=== PATIENT | female | born 1985 | race Asian ===

== ENCOUNTER → 2024-09-16 | Outpatient (CLI) | payer MEDICAID, SELFPAY ==
--- NOTE | 2024-09-16 13:15 | XR_ITS ---
Examination: Breast ultrasound, unilateral, right complete Date and time of exam: September 16, 2024 1318 hours INDICATIONS: Personal history right breast cancer with lumpectomy 2004, outside mammogram July 07, 2024 12 mm mass upper outer right breast Technique: Real-time luo scale ultrasonographic imaging performed right breast including all 4 quadrants as well as nipple retroareolar and axillary region. Findings: 9:00 oval mass indistinct margins 10 x 8 x 10 mm 11:00 oval mass lobular margins 7 x 3 x 7 mm Retroareolar cyst 4 x 3 x 4 mm IMPRESSION: BI-RADS Category 4: Suspicious for malignancy Suspicious mass 9:00 position right breast, indistinct margins, 10 x 8 x 10 mm Biopsy of this nodule is needed to exclude breast carcinoma, this nodule is amenable to ultrasound-guided breast biopsy for diagnosis
--- NOTE | 2024-09-16 13:45 | XR_ITS ---
Examination: Diagnostic digital mammography, unilateral, right Computer aided detection 3-D breast Tomosynthesis, unilateral Date and time of exam: September 16, 2024 1341 hours INDICATIONS: Outside mammogram 12 mm mass outer right breast upper right breast Technique: Nonmagnified MLO, CC views of the right breast have been obtained, reconstructed from 3-D Tomosynthesis images. R2 computer aided detection program utilized for evaluation of suspicious masses and/or abnormal calcifications. 3-D Tomosynthesis images obtained. Findings: Scattered areas of fibroglandular density 9 mm nodule outer right breast with partially indistinct margins Please see the right breast sonogram report today indicating 9:00 nodule indistinct margins 10 x 10 mm Impression: BI-RADS category 4: Suspicious for malignancy Suspicious nodule outer right breast Please see the right breast sonogram report today indicating BI-RADS 4 suspicious nodule 9:00 position right breast requiring ultrasound-guided breast biopsy for diagnosis
== END | disposition home or self-care (01) ==
PROVIDERS: PCP Family Medicine; Referring Provider Family Medicine; Visit Provider Family Medicine
DX: R92.341 Mammographic extreme density, right breast (principal); N63.10 Unspecified lump in the right breast, unspecified quadrant; N63.15 Unspecified lump in the right breast, overlapping quadrants
CPT/HCPCS: 76641; 77061; 77065; G0279

== ENCOUNTER → 2024-11-09 | Outpatient (CLI) | payer MEDICAID, SELFPAY ==
--- NOTE | 2024-11-06 11:06 | EKG_ITS ---
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
[2024-11-06 13:20] LABS: Basophils # (Auto) 0.1 Thou/mm3 (0.0-0.2); Basophils % (Auto) 1 % (0-2.5); Eosinophils # (Auto) 0.7 Thou/mm3 (0.0-0.5); Eosinophils % (Auto) 5 % (0-10); Hematocrit 38.4 % (36.0-46.0); Hemoglobin 12.6 g/dL (12.0-16.0); Immature Granulocytes % (Auto) 0 % (0-0); Immature Granulocytes Auto 0.03 Thou/mm3 (0.00-0.00); Lymphocytes % (Auto) 22 % (10-50); Mean Corpuscular HGB Conc 32.8 g/dl (31.0-37.0); Mean Corpuscular Hemoglobin 28.3 pg (25.0-35.0); Mean Corpuscular Volume 86 fL (80-100); Monocytes # (Auto) 0.9 Thou/mm3 (0.0-0.8); Monocytes % (Auto) 6 % (0-12); Neutrophils # (Auto) 9.1 Thou/mm3 (1.8-7.7); Neutrophils % (Auto) 66 % (37-80); Nucleated Red Blood Cell % 0 /100 WBC (0); Platelet Count 378 Thou/mm3 (140-440); RDW Standard Deviation 42.3 fL (36.4-46.3); Red Blood Count 4.45 Miln/mm3 (4.00-5.20); White Blood Count 13.7 Thou/mm3 (3.6-11.0)
[2024-11-06 13:24] LABS: HCG,Qualitative Serum Negative
[2024-11-06 13:28] LABS: Partial Thromboplastin Time 29.2 Seconds (22.0-36.0); Prothrombin Time 10.5 Seconds (9.0-12.2)
--- NOTE | 2024-11-09 09:30 | XR_ITS ---
Examinations: Ultrasound-guided percutaneous breast biopsy, right breast 9:00 nodule Right breast sonography limited INDICATIONS: Right breast sonogram September 16, 2024 BI-RADS 4 suspicious nodule 9:00 position right breast. Exam date and time: November 09, 2024 0927 hours. Informed consent provided. Technique: A timeout was completed verifying correct patient, procedure, site, positioning, and special equipment if applicable Informed consent provided. The patient was placed in a supine position for the breast biopsy. Sonographic images of the breast were performed for localization of the suspicious nodule The patient's breast was prepped and draped in sterile fashion. Maximum sterile barrier technique, hand hygiene, ultrasound sterile technique 1% lidocaine was used to anesthetize the skin and breast adjacent to the suspicious nodule. Utilizing ultrasonographic guidance, 8 core biopsies were obtained of the suspicious nodule utilizing an 18-gauge BioPince needle. The specimens appears satisfactory. Estimated blood loss 3 cc. The patient tolerated the procedure well and there were no complications. Impression: Successful ultrasound-guided percutaneous breast biopsy, right breast 9:00 nodule.
== END | disposition home or self-care (01) ==
LOC: SDIM 08:53 → SIRX 09:20
PROVIDERS: Radiology Diagnostic Radiology; PCP Family Medicine; Referring Provider Family Medicine; Visit Provider Family Medicine
DX: D24.1 Benign neoplasm of right breast (principal); N60.21 Fibroadenosis of right breast; Z01.812 Encounter for preprocedural laboratory examination
CPT/HCPCS: 19083; 36415; 84703; 85025; 85610; 85730; 93005

== ENCOUNTER 2025-05-13 05:56 | Emergency (ER) | payer MEDICAID, SELFPAY ==
[2025-05-13 05:56] VITALS: BP 131/74; PULSE 106; RESP 18; TEMP 36.6; O2SAT 98
[2025-05-13 05:57] VITALS: BMI 22.8
--- NOTE | 2025-05-13 06:20 | XR_ITS ---
Examination: PA lateral chest 2 views TECHNIQUE: Upright PA lateral chest 2 views Date and time: May 13, 2025 0621 hours INDICATIONS: Cardiac palpitations today. FINDINGS: Normal heart size. Lungs are clear. The osseous structures are intact IMPRESSION: No active disease.
[2025-05-13 07:02] LABS: Collection Type, Urine Clean Catch
[2025-05-13 07:08] LABS: Basophils # (Auto) 0.1 Thou/mm3 (0.0-0.2); Basophils % (Auto) 1 % (0-2.5); Eosinophils # (Auto) 0.4 Thou/mm3 (0.0-0.5); Eosinophils % (Auto) 6 % (0-10); Hematocrit 38.0 % (36.0-46.0); Hemoglobin 12.5 g/dL (12.0-16.0); Immature Granulocytes Auto 0.01 Thou/mm3 (0.00-0.00); Lymphocytes # (Auto) 2.2 Thou/mm3 (1.0-4.8); Lymphocytes % (Auto) 29 % (10-50); Mean Corpuscular HGB Conc 32.9 g/dl (31.0-37.0); Mean Corpuscular Hemoglobin 28.3 pg (25.0-35.0); Mean Corpuscular Volume 86 fL (80-100); Monocytes # (Auto) 0.5 Thou/mm3 (0.0-0.8); Monocytes % (Auto) 7 % (0-12); Neutrophils # (Auto) 4.4 Thou/mm3 (1.8-7.7); Neutrophils % (Auto) 58 % (37-80); Nucleated Red Blood Cell # 0.00 Thou/mm3 (0.00-0.00); Nucleated Red Blood Cell % 0 /100 WBC (0); Platelet Count 358 Thou/mm3 (140-440); RDW Standard Deviation 39.8 fL (36.4-46.3); Red Blood Count 4.41 Miln/mm3 (4.00-5.20); White Blood Count 7.6 Thou/mm3 (3.6-11.0)
--- NOTE | 2025-05-13 07:15 | PD.EDRME ---
Rapid Medical Screening Exam RME Arrival date/time: 05/13/25 05:56 39-year-old female with history of valvuloplasty presents with concerns of palpitations Chief Complaint: Arrhythmia/Palpitations Vital signs: Vital Signs Temperature 97.8 F 05/13/25 05:56 Pulse Rate 106 H 05/13/25 05:56 Respiratory Rate 18 05/13/25 05:56 Blood Pressure 131/74 H 05/13/25 05:56 Pulse Oximetry (%) 98 05/13/25 05:56 Oxygen Delivery Method Room Air 05/13/25 05:56
[2025-05-13 07:19] LABS: HCG Qualitative,Urine Negative
[2025-05-13 07:23] LABS: Amphetamine/Methamp Scrn,U Negative (Negative); Barbiturate Screen,Urine Negative (Negative); Benzodiazepines Screen,Urine Negative (Negative); Benzoylecgonine Screen, Ur Negative (Negative); Fentanyl Screen,Urine Negative (Negative); Opiate Screen,Urine Negative (Negative); THC Screen,Urine Negative (Negative)
[2025-05-13 07:28] LABS: INR 1.0 (0.9-1.3); Partial Thromboplastin Time 29.9 Seconds (22.0-36.0); Prothrombin Time 11.1 Seconds (9.0-12.2)
[2025-05-13 07:29] LABS: Bilirubin,Urine Negative (Negative); Blood,Urine Negative (Negative); Clarity,Urine Turbid (Clear/Hazy); Color,Urine Yellow (Lt Yel-Yel); Culture Indicated,Urine Not Indicated; Glucose, Urine Negative (Negative); Hyaline Casts,Urine 1 /hpf (0-1); Ketones,Urine Negative (Negative); Leukocyte Esterase,Urine Positive (Negative); Nitrite,Urine Negative (Negative); PH,Urine 6.0 (5.0-7.0); Protein,Urine 1+ (Neg - Trace); RBC,Urine 5 /hpf (0-3); Specific Gravity,Urine 1.032 (1.001-1.035); Squamous Epithelial Cell,Urine 19 /hpf (0-5); Urobilinogen,Urine Negative mg/dL (0.0-1.0); WBC,Urine 9 /hpf (0-5)
[2025-05-13 07:31] LABS: Alanine Aminotransferase 16 U/L (10-49); Albumin, Serum 4.3 gm/dL (3.5-5.0); Albumin/Globulin Ratio 1.5 (1.2-2.2); Alkaline Phosphatase 82 U/L (46-116); Anion Gap 11 (7-16); Aspartate Amino Transferase 18 U/L (0-34); BUN/Creatinine Ratio 10 Ratio (12-20); Bilirubin,Total 1.2 mg/dL (0.3-1.2); Blood Urea Nitrogen 7 mg/dL (9-23); Calcium 9.7 mg/dL (8.3-10.6); Calcium (Corrected) 9.7 mg/dL (8.5-10.1); Carbon Dioxide 26.4 mMol/L (20.0-31.0); Chloride 104 mMol/L (98-107); Creatinine (Component) 0.7 mg/dL (0.6-1.3); Estimated Creatinine Clearance 76.0 mL/min (>60); Globulin 2.8 gm/dL (2.3-3.5); Glucose 109 mg/dL (74-106); Magnesium 1.8 mg/dL (1.6-2.6); Osmolality,Calculated 280 (275-295); Potassium 3.6 mMol/L (3.4-5.1); Sodium 141 mMol/L (136-145); Total Protein 7.1 gm/dL (5.7-8.2); Troponin I < 0.020 ng/mL (0.0-0.045); eGFR > 60 See Note
[2025-05-13 07:32] LABS: B-Type Natriuretic Peptide 89 pg/mL (0-100)
[2025-05-13 08:15] LABS: D-Dimer < 250 ng/mL (<600)
--- NOTE | 2025-05-13 09:28 | PC.NURSE ---
MESSAGE LEFT FOR DR. ALVA TO READ XRAY
[2025-05-13 10:32] LABS: Troponin I < 0.020 ng/mL (0.0-0.045)
[2025-05-13 11:38] VITALS: BP 136/78; PULSE 83; RESP 16; TEMP 36.6; O2SAT 99
--- NOTE | 2025-05-13 12:06 | EDNOTE_ITS ---
ED Arrhythmia Palp. RME/HPI General Chief Complaint: Arrhythmia/Palpitations Stated Complaint: PALPITATIONS Time Seen by Provider: 05/13/25 11:51 Arrival date/time: 05/13/25 05:56 RME / HPI RME / HPI narrative: 39-year-old female with history of valvuloplasty presents with concerns of palpitations. Onset of symptoms earlier this morning as patient woke up with palpitation, and anxiety-like symptoms. Patient is having a lot of stress lately due to her daughter having a lot of medical issues. Patient denies any chest pain denies any shortness of breath denies any other complaints no medication was taken prior to arrival. Related Data Home Medications ?Medication ?Instructions ?Recorded ?Confirmed metoprolol tartrate 25 mg tablet 12.5 mg PO BID #0 tab s 06/11/17 01/18/18 Previous Rx's ?Medication ?Instructions ?Recorded buspirone 10 mg tablet 10 mg PO BID #60 tabs Allergies Allergy/AdvReac Type Severity Reaction Status Date / Time No Known Allergies Allergy Verified 11/13/17 20:51 Review of Systems Review of Systems Narrative Review of Systems: Review of system reviewed and within normal limits except mentioned in HPI ED Exam Narrative Physical exam: VITAL SIGNS: Reviewed. GENERAL APPEARANCE: Alert and interactive, follows commands, no acute distress, HEAD AND FACE: Non-traumatic. ENT: PERRL, pink conjunctivitis, eyelid no trauma, Mucous membrane moist. NECK: Supple, nontender, no nuchal rigidity. CHEST: No tenderness, no crepitus, no paradoxical movement, no retractions. LUNGS: Clear, well ventilated, symmetric, no rales, no wheezing, no ronchi, no stridor, good breath sounds bilaterally. HEART: Regular rate, regular rhythm, no murmur, no gallops. ABDOMEN: Soft, positive bowel sounds, nondistended, no guarding, nontender, no rebound, no masses, RECTAL: Deferred. GENITAL: Deferred. NEUROLOGICAL: Gross motor function intact sensory function intact, Appropriate for age. MUSCULOSKELETAL: low back nontender, full range of motion. EXTREMITIES: Nontender, full range of motion. SKIN: Color pink, dry, no rash, no lacerations, no abrasions, no contusions. LYMPHATICS: Deferred. Course Quality Measures none Orders Category Date Time Status EKG (ED ONLY) *Do not use* NOW Care 05/13/25 06:00 Completed EKG (ED Only) Stat Exams 05/13/25 05:59 Ordered XR chest 2V Stat Exams 05/13/25 06:20 Completed B-Type Natriuretic Peptide Stat Lab 05/13/25 06:55 Completed CBC Stat Lab 05/13/25 06:55 Completed Comprehensive Metabolic Panel Stat Lab 05/13/25 06:55 Completed D-Dimer Stat Lab 05/13/25 06:55 Completed Drug Screen,Urine Stat Lab 05/13/25 06:47 Completed HCG Qualitative,Urine Stat Lab 05/13/25 06:47 Completed Magnesium Stat Lab 05/13/25 06:55 Completed Partial Thromboplastin Time Stat Lab 05/13/25 06:55 Completed Prothrombin Time with INR Stat Lab 05/13/25 06:55 Completed Troponin I Stat Lab 05/13/25 06:55 Completed Troponin I Stat Lab 05/13/25 10:05 Completed Urinalysis, C/S if Indicated Stat Lab 05/13/25 06:47 Completed Vital Signs Vital signs: Vital Signs Temperature 97.8 F 05/13/25 05:56 Pulse Rate 106 H 05/13/25 05:56 Respiratory Rate 18 05/13/25 05:56 Blood Pressure 131/74 H 05/13/25 05:56 Pulse Oximetry (%) 98 05/13/25 05:56 Oxygen Delivery Method Room Air 05/13/25 05:56 Arrhythmia/Palpitations MDM Narrative MDM Narrative:: 39-year-old female with history of valvuloplasty presents with concerns of palpitations. Onset of symptoms earlier this morning as patient woke up with palpitation, and anxiety-like symptoms. Patient is having a lot of stress lately due to her daughter having a lot of medical issues. Patient denies any chest pain denies any shortness of breath denies any other complaints no medication was taken prior to arrival. EKG showed sinus tachycardia, ventricular rate of 108 bpm, no ST segment elevation or depression noted. Patient's workup including troponin x 2 came back unremarkable. Prior to discharge patient is not having any symptoms, patient's heart rate was noted to be 80. Patient is asking for prescription for buspirone because she used to take buspirone that helps her anxiety. Denies any other complaints. Patient appears nontoxic and hemodynamically stable .Decision to discharge the patient. The patient/family was given an opportunity to ask questions and understood their discharge instructions. Discharge instructions specifically included follow up provider and time frame, current and/or new medications and possible side effects, indications for sooner follow up or return to the emergency department, and the expected course of current diagnosis. Patient reports feeling better as well and giving evidence of significant clinical improvement, I believe patient is now a candidate for discharge. Patient data External records reviewed:: None Clinical information provided by:: patient Social determinants that could affect healthcare access:: none Patient has the following chronic illnesses:: Mitral stenosis status post valvuloplasty How is presenting disease/condition affected by chronic disease/condition?: exacerbated by Evaluation data The following diagnostics were reviewed and interpreted by me:: lab results, radiology exam(s) and EKG tracing(s) Lab and/or radiology exams considered but not ordered:: None Interpretation Summary: See results MDM Medications / Prescriptions Medications or Prescriptions considered but not ordered:: None Medication administrations:: None Consultations Consultation(s) initiated? (list below): No Diagnosis Differential diagnosis arrhythmia/palpitations: palpitations, anxiety and sinus tachycardia Most likely diagnosis given after review of the tests above:: anxiety Admission Indicated Admission indicated?: not indicated Admission Request Was there a request for admission?: No Disposition Plan Disposition Plan: Discharge Discharge Attestation Discharge Attestation: The patient was given an opportunity to ask questions and understood the discharge instructions. Discharge instructions specifically effects, indications for sooner follow up or return to the emergency department, and the expected course of current diagnosis. Patient condition: Stable Discharge Plan Plan Patient Disposition: HOME (Self Care) Discharge Disposition comment: Stable Prescriptions/Referrals Prescriptions/Med Rec: New buspirone 10 mg tablet 10 mg PO BID Qty: 60 0RF No Action metoprolol tartrate 25 MG tablet 12.5 mg PO BID Qty: 0 Referrals: Art Sky MD [Primary Care Provider, Family Practice] - In 1 week Problem List Clinical Impression: Anxiety Patient/Caregiver Discharge Instructions Discharge Activity: activity as tolerated Education Materials: Treating Anxiety Disorders ... Additional Instructions: Thank you for the opportunity for serving you today. You are stable for discharged . You are advised to: Follow-up with your PCP in 1 to 2 days Return to ED for worsening of symptoms Increase oral fluids Take medication as prescribed Print Language: Serbian Stand Alone Forms: [employer] Patient Portal Info Letter PA/LEARNING AND DEVELOPMENT INTERN Supervising Physician PA/LEARNING AND DEVELOPMENT INTERN Supervising Physician: MD Nancy
== END 2025-05-13 12:29 | disposition home or self-care (01) ==
PROVIDERS: Nurse Practitioner Primary Care; Emergency Provider Family Medicine; PCP Family Medicine
DX: F41.9 Anxiety disorder, unspecified (principal); R00.0 Tachycardia, unspecified
CPT/HCPCS: 36415; 71046; 80053; 80307; 81001; 81025; 83735; 83880; 84484; 85025; 85379; 85610; 85730; 93005; 99284

== ENCOUNTER 2025-07-30 00:51 | Emergency (ER) | payer MEDICAID, SELFPAY ==
[2025-07-30 00:52] VITALS: BMI 22.6
[2025-07-30 01:06] VITALS: BP 123/70; PULSE 86; RESP 16; TEMP 36.8; O2SAT 99
--- NOTE | 2025-07-30 01:17 | EDNOTE_ITS ---
ED Female Urogenital RME/HPI General Chief complaint: Urogenital-Female Stated complaint: PAINFUL URINATION BLOOD IN URINE Time Seen by Provider: 07/30/25 01:11 Arrival date/time: 07/30/25 00:51 39F with history of mitral valve stenosis presents to ED with 2 days of dysuria/hematuria. Patient is not on her cycle. Limitations: no limitations Related Data Home Medications ?Medication ?Instructions ?Recorded ?Confirmed metoprolol tartrate 25 mg tablet 12.5 mg PO BID #0 tab s 06/11/17 01/18/18 Previous Rx's ?Medication ?Instructions ?Recorded buspirone 10 mg tablet 10 mg PO BID #60 tabs cefuroxime axetil 500 mg tablet 500 mg PO BID 7 days # 14 tabs 07/30/25 Allergies Allergy/AdvReac Type Severity Reaction Status Date / Time No Known Allergies Allergy Verified 07/30/25 00:56 Review of Systems Review of Systems Systems Reviewed: All systems reviewed, normal except as documented Genitourinary Genitourinary: Reports abnormal menses, Reports dysuria and Reports hematuria Past Medical History Past Medical History CARDIAC: Positive Cardiac Arrhythmia and Valvular Heart Disease (Mitral Valve Stenosis, Valvuloplasty 12/2017); Negative Congestive Heart Failure RESPIRATORY: Negative Chronic Obstructive Pulmonary Disease (COPD) GENITOURINARY: Negative Renal Disease ENDOCRINE: Negative Diabetes Mellitus Type 1 or Diabetes Mellitus Type 2 Surgical History SURGICAL: Positive Cardiac Surgery and Valve Replacement Social History SMOKING STATUS: Never smoker ED Exam General Limitations: Present no limitations General appearance: Present alert and in no apparent distress Head Head exam: Present atraumatic Neck Neck exam: Present normal inspection, full ROM and trachea midline Chest Chest inspection: Present normal inspection and symmetric chest wall rise Neurological Exam Neurological exam: Present alert and oriented X3 Psychiatric Psychiatric exam: Present normal affect and normal mood Skin Skin exam: Present warm, dry, intact and normal color Course Quality Measures none Orders Category Date Time Status CT abdomen pelvis wo con Stat Exams 07/30/25 01:33 Taken HCG Qualitative,Urine Stat Lab 07/30/25 01:09 Completed Urinalysis, C/S if Indicated Stat Lab 07/30/25 01:09 Completed Urine Culture Stat Lab 07/30/25 01:09 Received Naproxen [Naprosyn] Med 07/30/25 01:12 Discontinued 500 mg PO X1 ONE cefuroxime axetiL [cefUROXime axetil] Med 07/30/25 03:16 Discontinued 500 mg PO X1 ONE Vital Signs Vital signs: Vital Signs Temperature 98.3 F 07/30/25 01:06 Pulse Rate 86 07/30/25 01:06 Respiratory Rate 16 07/30/25 01:06 Blood Pressure 123/70 07/30/25 01:06 Pulse Oximetry (%) 99 07/30/25 01:06 Oxygen Delivery Method Room Air 07/30/25 01:06 O2 at 99% on RA and WNLs Urogenital - Female MDM Narrative MDM Narrative:: 39F with history of mitral valve stenosis presents to ED with 2 days of dysuria/hematuria. Patient is not on her cycle. Physical exam reveals well-appearing female. Patient is afebrile, calm, alert, and laughing. UA mostly blood with some WBCs. HCG neg. CT telerad unremarkable. Meds and family service counselor given. Patient data External records reviewed:: [facility] previous records Clinical information provided by:: patient Social determinants that could affect healthcare access:: none Patient has the following chronic illnesses:: mitral valve stenosis How is presenting disease/condition affected by chronic disease/condition?: unef fected by Evaluation data The following diagnostics were reviewed and interpreted by me:: lab results Lab and/or radiology exams considered but not ordered:: ordered Interpretation Summary: above Medications / Prescriptions Medications or Prescriptions considered but not ordered:: ordered Medication administrations:: Medication Administration History Discontinued Medications Cefuroxime Axetil (Cefuroxime Axetil 250 Mg Tablet) 500 mg PO X1 ONE Stop: 07/30/25 03:17 Naproxen (Naproxen 250 Mg Tablet) 500 mg PO X1 ONE Stop: 07/30/25 01:13 Last Admin: 07/30/25 01:21 Dose: Not Given Documented By: ANTONI Non-Admin Reason: Patient Refused Comments: Pt refused. Stated she was unsure if she may or may not be allergic to it. Asked if pt would want alternative pain medication and she declined. above Consultations Consultation(s) initiated? (list below): No Diagnosis Urogenital Female Differential Diagnosis: urinary tract infection, bacterial vaginosis, trichomoniasis, cervicitis, ovarian cyst, vaginitis, ruptured ovarian cyst, cyst of Bartholin's gland, cystitis, dysmenorrhea and other (kidney stone) Most likely diagnosis given after review of the tests above:: UTI Admission Indicated Admission indicated?: not indicated Admission Request Was there a request for admission?: No Disposition Plan Disposition Plan: Discharge Discharge Attestation Discharge Attestation: The patient and all family members were given an opportunity to ask questions and understood the discharge instructions. Discharge instructions specifically effects, indications for sooner follow up or return to the emergency department, and the expected course of current diagnosis. Patient condition: Stable Discharge Plan Plan Patient Disposition: HOME (Self Care) Discharge Disposition comment: Stable Prescriptions/Referrals Prescriptions/Med Rec: New cefuroxime axetil 500 mg tablet 500 mg PO BID 7 Days Qty: 14 0RF No Action metoprolol tartrate 25 MG tablet 12.5 mg PO BID Qty: 0 buspirone 10 mg tablet 10 mg PO BID Qty: 60 0RF Referrals: Art Sky MD [Primary Care Provider, Family Practice] - In 1 week Problem List Clinical Impression: UTI (urinary tract infection) Patient/Caregiver Discharge Instructions Education Materials: ED CYSTITIS Female Adult Additional Instructions: Please follow-up with PCP within 24-48 hours and return immediately if symptoms worsen. NSAIDs like ibuprofen tend to work better for this type of pain. Print Language: Azeri Stand Alone Forms: Patient Portal Info Letter COLIN/JAIRO Supervising Physician JAILYN Supervising Physician: Dr. Kendrick
[2025-07-30 01:23] LABS: Collection Type, Urine Clean Catch
[2025-07-30 01:30] LABS: Bilirubin,Urine Negative (Negative); Clarity,Urine Turbid (Clear/Hazy); Color,Urine Red (Lt Yel-Yel); Culture Indicated,Urine Yes; Glucose, Urine Negative (Negative); Ketones,Urine Negative (Negative); Leukocyte Esterase,Urine Positive (Negative); Nitrite,Urine Negative (Negative); PH,Urine 6.5 (5.0-7.0); Protein,Urine 2+ (Neg - Trace); RBC,Urine 4315 /hpf (0-3); Specific Gravity,Urine 1.010 (1.001-1.035); Squamous Epithelial Cell,Urine 5 /hpf (0-5); Urobilinogen,Urine Negative mg/dL (0.0-1.0); WBC,Urine 125 /hpf (0-5)
[2025-07-30 01:31] LABS: Blood,Urine 4+ (Negative)
[2025-07-30 01:32] LABS: HCG Qualitative,Urine Negative
--- NOTE | 2025-07-30 01:33 | XR_ITS ---
Examination: CT abdomen and pelvis without contrast. Coronal 3-D reconstructions. Sagittal 2-D reconstructions. Date and time of exam: July 30, 2025, 0149 hours INDICATIONS: Left flank pain painful urination and blood in the urine today CTDI: vol (mGy): 6.08 DLP: (mGycm): 283 Technique: Axial images of the abdomen have been obtained, 3 mm slice thickness Intravenous contrast material has not been administered. Low dose protocols were performed. One or more of the following dose reduction techniques were used; automated exposure control, adjustment of the mA and/or KV according to patient size, use of iterative reconstruction technique. Findings: No focal liver or splenic lesions No gallstones No pancreatic or adrenal mass Mild to moderate renal scar formation No renal or ureteral calculi, no hydronephrosis Aorta normal size Normal appendix No bowel obstruction Abundant stool in the rectosigmoid Anteverted uterus No adnexal mass Mild thickening of the urinary bladder wall up to 7 mm No bladder mass or bladder calculi The Jamie structures are intact IMPRESSION: Mild to moderate bilateral renal scar formation No renal or ureteral calculi, no hydronephrosis Normal appendix Mild thickening of the urinary bladder wall, consider cystitis
--- NOTE | 2025-07-30 03:12 | PRELIM_ITS ---
CT scan of the abdomen and pelvis without intravenous or oral contrast (axial sections with sagittal and coronal reformats) July 30, 2025 0149 hours Clinical History: Rule out kidney stone Comparison: No prior study is available for comparison. Findings: The lung bases are clear. Liver, gallbladder, spleen, pancreas, adrenal glands and kidneys are unremarkable. No urinary tract stone or obstruction is identified. Mild urinary bladder wall thickening. The appendix is normal, best seen on image 121. No acute osseous process. Bowel caliber is normal. No free intraperitoneal air or fluid. Impression: No urinary tract stone or obstruction is identified. Mild urinary bladder wall thickening. Consider cystitis. Report Electronically Signed By: Nacho Bansal 07/30/2025 3:11:26 AM [EST]
== END 2025-07-30 03:38 | disposition home or self-care (01) ==
PROVIDERS: Physician Assistant; Emergency Provider Emergency Medicine; PCP Family Medicine
DX: N30.91 Cystitis, unspecified with hematuria (principal); I05.0 Rheumatic mitral stenosis
CPT/HCPCS: 74176; 81001; 81025; 87086; 99283; A9270

== ENCOUNTER 2025-08-18 11:19 | Emergency (ER) | payer MEDICAID, SELFPAY ==
--- NOTE | 2025-08-18 12:21 | XR_ITS ---
Examination: Abdomen AP single view Technique: AP portable supine abdomen, single view Exam date and time: July 19, 2025, 1232 hours INDICATIONS: Left quadrant abdominal pain beginning today FINDINGS: Nonobstructive bowel gas pattern. No free air No renal or ureteral calculi Osseous structures intact IMPRESSION: Nonobstructive bowel gas pattern
[2025-08-18 12:56] VITALS: BP 113/73; PULSE 65; RESP 16; TEMP 37.1; O2SAT 100; BMI 23.4
[2025-08-18 13:31] LABS: Collection Type, Urine Clean Catch
[2025-08-18 13:42] LABS: Bacteria,Urine Rare; Bilirubin,Urine Negative (Negative); Blood,Urine Negative (Negative); Color,Urine Colorless (Lt Yel-Yel); Glucose, Urine Negative (Negative); Ketones,Urine Negative (Negative); Leukocyte Esterase,Urine Positive (Negative); Nitrite,Urine Negative (Negative); PH,Urine 6.5 (5.0-7.0); Protein,Urine Negative (Neg - Trace); RBC,Urine 1 /hpf (0-3); Specific Gravity,Urine 1.004 (1.001-1.035); Squamous Epithelial Cell,Urine 15 /hpf (0-5); Urobilinogen,Urine Negative mg/dL (0.0-1.0); WBC,Urine 28 /hpf (0-5)
[2025-08-18 13:43] LABS: Clarity,Urine Hazy (Clear/Hazy)
--- NOTE | 2025-08-18 13:59 | PD.EDABDPN ---
ED Abdominal Pain RME/HPI General Chief Complaint: Abdominal Pain Stated complaint: Left lower abdominal pain today Time seen by provider: 08/18/25 12:08 Arrival date/time: 08/18/25 11:19 Source: patient Mode of arrival: ambulatory Limitations: no limitations RME / HPI RME / HPI narrative: This patient is a pleasant 39-year-old male who arrives to the ED today with complaints of left lower quadrant pain extending towards her pelvis for the past few days. Patient states that symptoms came on 2 days ago and have been having and flowing. Patient states she was recently diagnosed with a urinary tract infection and completed her course of antibiotics. Patient states she felt the urinary tract infection had resolved, but now is concerned it may have come back. Patient states some mild dysuria. Patient denies any fever nausea or vomiting. Vital signs were stable arrival. Related Data Home Medications ?Medication ?Instructions ?Recorded ?Confirmed metoprolol tartrate 25 mg tablet 12.5 mg PO BID #0 tabs 06/11/17 01/18/18 Previous Rx's ?Medication ?Instructions ?Recorded buspirone 10 mg tablet 10 mg PO BID #60 tabs 05/13/25 sulfamethoxazole 800 1 tab PO BID #14 tabs 08/18/25 mg-trimethoprim 160 mg tablet (Bactrim DS) Allergies Allergy/AdvReac Type Severity Reaction Status Date / Time No Known Allergies Allergy Verified 08/18/25 11:22 Review of Systems Review of Systems Systems Reviewed: All systems reviewed, normal except as documented Past Medical History Past Medical History CARDIAC: Positive Cardiac Arrhythmia and Valvular Heart Disease (Mitral Valve Stenosis, Valvuloplasty 12/2017); Negative Congestive Heart Failure RESPIRATORY: Negative Chronic Obstructive Pulmonary Disease (COPD) GENITOURINARY: Negative Renal Disease ENDOCRINE: Negative Diabetes Mellitus Type 1 or Diabetes Mellitus Type 2 Surgical History SURGICAL: Positive Cardiac Surgery and Valve Replacement Social History SMOKING STATUS: Never smoker ED Exam General Limitations: Present no limitations General appearance: Present alert and in no apparent distress Head Head exam: Present atraumatic Eye Eye exam: Present normal appearance, PERRL and EOMI ENT ENT exam: Present normal exam, normal oropharynx and mucous membranes moist Neck Neck exam: Present normal inspection, full ROM and trachea midline Chest Chest inspection: Present normal inspection and symmetric chest wall rise Respiratory Respiratory exam: Present normal lung sounds bilaterally Cardiovascular Cardiovascular exam: Present regular rate, normal rhythm and normal heart sounds Abdominal Exam Abdominal exam: Present soft, normal bowel sounds and other (Nonspecific diffuse left lower quadrant pain extending into the pelvis. No signs of trauma. No pulsatile masses.); Absent rigidity, trauma or incision Extremities Exam Extremities exam: Present normal inspection and full ROM Back Exam Back exam: Present normal inspection and full ROM Neurological Exam Neurological exam: Present alert, oriented X3 and CN II-XII intact Psychiatric Psychiatric exam: Present normal affect and normal mood Skin Skin exam: Present warm, dry, intact and normal color Course Quality Measures none Orders Category Date Time Status KUB [XR abdomen 1V] Stat Exams 08/18/25 12:21 Completed UA [Urinalysis] Stat Lab 08/18/25 13:17 Completed Vital Signs Vital signs: Vital Signs Temperature 98.8 F 08/18/25 12:56 Pulse Rate 65 08/18/25 12:56 Respiratory Rate 16 08/18/25 12:56 Blood Pressure 113/73 08/18/25 12:56 Pulse Oximetry (%) 100 08/18/25 12:56 Oxygen Delivery Method Room Air 08/18/25 12:56 Abdominal Pain MDM MDM Narrative MDM Narrative:: Facility all studies performed the ED reevaluated by me personally. Urinalysis confirms urinary tract infection. Patient will receive a prescription for antibiotics to address her concern. KUB was unremarkable for any SBO or intra-abdominal concerns. Patient data External records reviewed:: [facility] previous records Clinical information provided by:: patient Social determinants that could affect healthcare access:: none Patient has the following chronic illnesses:: None How is presenting disease/condition affected by chronic disease/condition?: no chronic disease Evaluation data The following diagnostics were reviewed and interpreted by me:: lab results and radiology exam(s) Lab and/or radiology exams considered but not ordered:: None Interpretation Summary: Urinalysis confirmed a urine WBC count of 28 per high-powered field. KUB confirmed a nonobstructive bowel gas pattern without signs of SBO or intra-abdominal concerns Medications / Prescriptions Medications or Prescriptions considered but not ordered:: None Medication administrations:: None Consultations Consultation(s) initiated? (list below): No Diagnosis Differential diagnosis abdominal pain: abdominal pain, small bowel obstruction and other (UTI) Most likely diagnosis given after review of the tests above:: Urinary tract infection Admission Indicated Admission indicated?: not indicated Admission Request Was there a request for admission?: No Disposition Plan Disposition Plan: Discharge Discharge Attestation Discharge Attestation: The patient and all family members were given an opportunity to ask questions and understood the discharge instructions. Discharge instructions specifically effects, indications for sooner follow up or return to the emergency department, and the expected course of current diagnosis. Patient condition: Stable Discharge Plan Plan Patient Disposition: HOME (Self Care) Prescriptions/Referrals Prescriptions/Med Rec: New sulfamethoxazole-trimethoprim [Bactrim DS] 800-160 mg tablet 1 tab PO BID Qty: 14 0RF No Action metoprolol tartrate 25 MG tablet 12.5 mg PO BID Qty: 0 buspirone 10 mg tablet 10 mg PO BID Qty: 60 0RF Referrals: Art Sky MD [Primary Care Provider, Family Practice] - In 1 week Problem List Clinical Impression: Urinary tract infection Patient/Caregiver Discharge Instructions Education Materials: Urinary Tract Infections in Women Additional Instructions: Advised patient would like send box as directed to completion as well as Tylenol and/or Motrin as needed for pain relief. Print Language: Tristanian Stand Alone Forms: [employer] Award Info., Patient Portal Info Letter
== END 2025-08-18 15:17 | disposition home or self-care (01) ==
PROVIDERS: Emergency Provider Physician Assistant; PCP Family Medicine
DX: N39.0 Urinary tract infection, site not specified (principal); R10.32 Left lower quadrant pain
CPT/HCPCS: 74018; 81001; 99282